=== PATIENT | female | born 1935 | race Caucasian/White ===

== ENCOUNTER 2022-02-20 13:41 | Emergency (ER) | payer OTHER, MEDICARE, BC ==
[~2022-02-20] VITALS: Ht 177.8 cm; Wt 89.9 kg
[~2022-02-20 13:41] MED LIST: ALLOPURINOL100 MG PO; AMBIEN10 MG PO; CLONIDINE HCL0.2 MG PO; CYCLOBENZAPRINE10 MG PO; DULOXETINE HCL20 MG PO; GABAPENTIN300 MG PO; LEVOTHYROXINE88 MCG PO; NORVASC5 MG PO; PERCOCET 5-3251 EACH PO; TRAZODONE HCL100 MG PO; ZOCOR20 MG PO
--- OUTSIDE RECORDS SUMMARY | 2022-02-20 13:44 | XMS ---
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 Patricia has no Care Guidelines for this patient. Nicola VISIT COUNT (12 MO.) 1 CARMELLA Hanna TOTAL 1 NOTE: Visits indicate total known visits. ED/C VISIT TRACKING (12 MO.) 02/20/2022 13:41 CARMELLA Gambino [place] TYPE: Emergency COMPLAINT: - FALL, HEAD INJURY INPATIENT VISIT TRACKING (12 MO.) No inpatient visits to display in this time frame [email or web address]
[2022-02-20] MEDS ORDERED: GABAPENTIN300 MG PO (14:37)
[2022-02-20] MEDS ORDERED: AMITRIPTYLINE H10 MG PO (14:39)
[2022-02-20] MEDS ORDERED: LOSARTAN POTASS50 MG PO (14:39)
== END 2022-02-20 16:24 | disposition home or self-care (01) ==
LOC: ED 13:41
DX: S00.83XA Contusion of other part of head, initial encounter (principal); X50.9XXA Other and unspecified overexertion or strenuous movements or postures, initial encounter; I10 Essential (primary) hypertension; E78.00 Pure hypercholesterolemia, unspecified; Z87.891 Personal history of nicotine dependence; Z79.899 Other long term (current) drug therapy
CPT/HCPCS: 70450; 90471; 90715; 99283-25; A9270

== ENCOUNTER 2024-02-03 10:48 | Emergency (ER) | payer MEDICARE, BC ==
[~2024-02-03] VITALS: Ht 177.8 cm; Wt 86.5 kg
[~2024-02-03 10:48] MED LIST changes: +AMITRIPTYLINE H10 MG PO; +DULOXETINE HCL30 MG PO; +LOSARTAN POTASS50 MG PO
--- OUTSIDE RECORDS SUMMARY | 2024-02-03 10:49 | XMS ---
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 Patricia has no Care Guidelines for this patient. Nicola VISIT COUNT (12 MO.) 2 CARMELLA Hanna TOTAL 2 NOTE: Visits indicate total known visits. 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
[2024-02-03 11:12] LABS: BASOPHILS 0.2 % (0-2); EOSINOPHILS 1.1 % (0-6); HEMATOCRIT 48.6 % (35.0-50.0); HEMOGLOBIN 16.1 g/dL (12.0-18.0); LYMPHOCYTES 18.5 % (24-44); MCH 31.6 (27-36); MCHC 33.2 g/dl (30-36); MCV 95.3 fl (81-99); MONOCYTES 15.5 % (0-12); NEUTROPHILS 64.7 % (39-80); PLATELET COUNT 267 K/uL (140-440); RBC 5.11 M/ul (4.3-5.7)
[2024-02-03] MEDS ORDERED: IBLOOD GLUCOSE TEST STRIP 1 EA TEST XX ONE (11:15)
[2024-02-03] MEDS ORDERED: SODIUM CHLORIDE 0.9% 1,000 ML IV ONE (11:15)
[2024-02-03 11:46] LABS: ALBUMIN 3.3 g/dL (3.4-5.0); ALBUMIN/GLOBULIN RATIO 0.67 (1.1-2.4); ANION GAP 13.4 (7-21); BILIRUBIN, TOTAL 0.6 ng/dL (0.2-1.0); BUN/CREATININE RATIO 8.91 (6.0-28.6); CALCIUM 8.9 mg/dL (8.5-10.1); CREATININE, SERUM 1.57 mg/dL (0.55-1.02); MAGNESIUM 2.4 mg/dL (1.8-2.4); POTASSIUM 3.4 mmol/L (3.5-5.1); PROTEIN, TOTAL 8.2 g/dL (6.4-8.2)
[2024-02-03 12:03] LABS: INFLUENZA B NAA NEGATIVE (NEGATIVE); RESPIRATORY SYNCYTIAL VIR NAA NEGATIVE (NEGATIVE)
[2024-02-03 12:51] LABS: BILIRUBIN, URINE POSITIVE (negative); BLOOD/HGB, URINE SMALL (Negative); KETONE, URINE TRACE (Negative); LEUK ESTERASE, URINE MODERATE (negative); NITRITE, URINE NEGATIVE (negative)
[2024-02-03 12:59] LABS: BACTERIA, URINE 2+ /hpf (negative); CASTS, URINE NONE SEEN \\lpf; COLLECTION TYPE, URINE CLEAN CATCH; CRYSTALS, URINE NONE SEEN (0-1+); EPITHELIAL CELLS, URINE SQUAMOUS 1+ /lpf (0-1+); REFLEX CULTURE, URINE Yes (No); WHITE BLOOD CELLS, URINE >50 /HPF (0-5)
[2024-02-03] MEDS ORDERED: CEFTRIAXONE/SODIUM CHLORIDE 2 GM/100 ML PIGGYBACK IV ONE (13:15)
[2024-02-03] MEDS ORDERED: CEFDINIR300 MG PO (14:05)
[2024-02-03 14:14] VITALS: BP 124/90
--- NOTE | 2024-02-03 21:56 | EKG ---
[facility] [address] [place] [address] Signed Normal sinus rhythm with sinus arrhythmia Left axis deviation Minimal voltage criteria for LVH, may be normal variant ( Boling product ) Inferior infarct , age undetermined Abnormal ECG When compared with ECG of 11-OCT-2019 15:20, QT has lengthened Confirmed by Kenny Cardoza MD () on 02/03/2024 9:56:29 PM Electronically Signed By: KENNY CARDOZA MD 02/03/24 [id number] PATIENT NAME: TYRONE PIÑA Electrocardiogram DATE OF : [birth year] PHYSICIAN: KENNY CARODZA MD REPORT #: [id number] REPORT IS CONFIDENTIAL AND NOT TO BE RELEASED WITHOUT AUTHORIZATION
== END 2024-02-03 14:14 | disposition home or self-care (01) ==
LOC: ED 10:48
PROVIDERS: Emergency Medicine
DX: N39.0 Urinary tract infection, site not specified (principal); I10 Essential (primary) hypertension; Z87.891 Personal history of nicotine dependence; Z79.890 Hormone replacement therapy; Z79.899 Other long term (current) drug therapy
CPT/HCPCS: 36415; 71045; 80053; 81001; 83735; 84484; 85025; 87502; 93005; 93010; J0696; J7030; U0002